=== PATIENT | female | born 1975 | race American Indian/Alaskan Native ===

== ENCOUNTER 2020-12-02 14:39 | Outpatient (CLI) | payer BC ==
--- NOTE | 2020-12-02 15:42 | Ultrasound Report ---
ULTRASOUND BREAST LEFT COMPLETE, 12/02/2020 CLINICAL INFORMATION / INDICATION: Family history of breast cancer. Recent outside ultrasound showing indeterminate small lesions TECHNIQUE: Complete sonographic evaluation of all 4 quadrants and retroareolar region was performed. COMPARISON: Recent outside left breast ultrasound FINDINGS: Multiple benign-appearing cysts and cyst clusters are seen scattered throughout the lateral left dejon st but particularly in the upper outer quadrant. Largest is located at 1:30, 6 cm from the nipple, me asuring 2.4 cm. An ovoid benign-appearing nodule versus complicated cyst at 2:30, 5 cm from the nippl e, measuring just under 5 mm is probably benign. Small cyst cluster is seen at 4:00. Mild benign-appe aring retroareolar ductal ectasia is seen. No axillary lesions are noted. IMPRESSION: Multiple benign cysts and cyst clusters are seen. A small probably benign nodule versus c omplicated cyst is noted at 2:30. Follow up recommendation: Left breast ultrasound in 6 months BI-RADS Category 3: Probably Benign. Followup in 6 months. A normal or "negative" report should not preclude biopsy or follow-up of a clinically suspicious find ing. Signer Name: Temo Coker MD Signed: 12/02/2020 3:37 PM Workstation Name: [id number]
== END 2020-12-02 14:40 | disposition home or self-care (01) ==
LOC: SPVWC 14:39
PROVIDERS: ATTEND Surgery
DX: N60.02 Solitary cyst of left breast (principal); R92.2 Inconclusive mammogram; Z80.3 Family history of malignant neoplasm of breast

== ENCOUNTER 2021-06-11 12:38 | Outpatient (CLI) | payer BC ==
--- NOTE | 2021-06-11 14:15 | Ultrasound Report ---
BILATERAL DIGITAL DIAGNOSTIC MAMMOGRAM WITH CAD CONVENTIONAL, 06/11/2021 LEFT LIMITED BREAST ULTRASOUND CLINICAL INFORMATION / INDICATION: Patient presents for evaluation of focal pain under the left arm. Patient also presents for follow-up of previously seen probably benign nodule versus complicated cyst in the left breast. ABN MAMMO TECHNIQUE: Digital bilateral mammographic imaging was performed. Limited ultrasound was performed. Th is examination was interpreted with the benefit of Computer-Aided Detection (CAD) analysis. COMPARISON: Prior mammogram 05/27/2020 and left breast ultrasound 12/02/2020 FINDINGS: Breast Density: The breasts are heterogeneously dense, which may obscure small masses. MAMMOGRAPHIC FINDINGS: No dominant mass, suspicious calcifications, or architectural distortion in th e right breast. There is increasing circumscribed nodularity in the posterior upper outer quadrant of the left breast, the largest in the 1:00 position located 6 cm from the nipple measuring up to 3 cm. Targeted ultrasound performed for further evaluation. ULTRASOUND FINDINGS: Targeted ultrasound evaluation was performed of the area of interest. Correspo nding with the increasing nodularity seen mammographically, there are numerous benign simple, cluster ed, and complicated cysts seen throughout the upper outer quadrant of the left breast, with the large st cyst in the 1:30 position located 6 cm from the nipple measuring up to 2.4 cm. There is an oval ci rcumscribed hypoechoic nodule versus complicated cyst in the 1:30 position located 3 cm from the nipp le measuring up to 8mm. This was previously labeled as 2:00 7 cm from the nipple and is not appreciab ly changed. The previously seen nodule in the 2:30 position located 5 cm the nipple is no longer visu alized. A morphologically normal lymph node is seen in the left axilla. IMPRESSION: 1. Numerous benign simple, clustered, and complicated cysts in the left breast. Additionally, there i s a probably benign nodule versus complicated cyst in the 1:30 position located 3 cm from the nipple. Recommend left breast ultrasound in 6 months to ensure ongoing stability. Follow up recommendation: Short term follow up in 6 months. BI-RADS Category 3: Probably Benign. Followup in 6 months. A "normal" or negative report should not discourage follow up or biopsy of a clinically significant f inding. A written summary of these findings will be mailed to the patient. The patient will be entered into a mammography reporting system which will generate a reminder letter for the patient's next appointmen t at the appropriate interval. According to the [employer], yearly mammograms are recommended starting at age 40 and continuing as long as a woman is in good health. Breast MRI is recommended for women with an lisa roximately 20-25% or greater lifetime risk of breast cancer, including women with a strong family his tory of breast or ovarian cancer and women who have been treated for Hodgkin's disease. Signer Name: Nicol Deal MD Signed: 06/11/2021 2:11 PM Workstation Name: [id number]
== END 2021-06-11 12:39 | disposition home or self-care (01) ==
LOC: SPVWC 12:38
PROVIDERS: ATTEND Surgery
DX: N60.02 Solitary cyst of left breast (principal)
CPT/HCPCS: 77066